=== PATIENT | male | born 1995 | race Caucasian/White ===

== ENCOUNTER 2017-01-24 22:23 | Emergency (ER) | payer BC ==
[2017-01-24] MEDS ORDERED: Fluorescein 1 MG Ophth Strip EYEBOTH ONE (22:39)
[2017-01-24] MEDS ORDERED: Proparacaine 0.5% Ophth Soln 15 ML Bottle EYELF PRN (22:40)
--- NOTE | 2017-01-25 00:31 | EDM.PDOC ---
ED HPI GENERAL MEDICAL PROBLEM - General Chief Complaint: ENT Problem Stated Complaint: ?Foreign body, right eye irritation Time Seen by Provider: 01/24/17 22:39 Source of Information: Reports: Patient History Limitations: Reports: No Limitations - History of Present Illness INITIAL COMMENTS - FREE TEXT/NARRATIVE: Patient was welding earlier today and got some slag in right also. Also had brief exposure to weld light even though he was wearing a welding helmet. He went to optometry to get the metal removed and tonight his eyes started to burn more. He has had weld burn before and states pain is not too bad. he mainlywants his eyes checked to make sure there is nor more slag in them as both eye are irritated and watering. Onset: Today, Gradual Duration: Hour(s): Location: Reports: Other (eyes bilaterally) Quality: Reports: Burning Severity: Mild Improves with: Reports: Other (has been using his daughters gentamycin eye drop which seem to help) Worsens with: Reports: None Associated Symptoms: Reports: No Other Symptoms ED ROS ENT - Review of Systems Review Of Systems: See Below Constitutional: Reports: No Symptoms HEENT: Reports: Other (watery, irritated red eyes bilat) Respiratory: Reports: No Symptoms Cardiovascular: Reports: No Symptoms Endocrine: Reports: No Symptoms GI/Abdominal: Reports: No Symptoms : Reports: No Symptoms Musculoskeletal: Reports: No Symptoms Skin: Reports: No Symptoms Neurological: Reports: No Symptoms Psychiatric: Reports: No Symptoms Hematologic/Lymphatic: Reports: No Symptoms Immunologic: Reports: No Symptoms ED EXAM, ENT - Physical Exam Exam: See Below Exam Limited By: No Limitations General Appearance: Alert, WD/WN, No Apparent Distress Eye Exam: Bilateral Eye: EOMI, Normal Fundi, Normal Inspection, PERRL, Other ( Eyes were stained with fluorescin after being numbed with a drop of propairacaine. Examined with blue light and magnification. NO foreign bodies, cornea abrasions or other abnormalities found. Anterior chamber clear bilat. conjunctive and sclera with mild injection. upper and lower lids pink and slightly puffy bilat. Both eyes watery.) Ears: Normal External Exam, Normal Canal, Hearing Grossly Normal Head: Atraumatic, Normocephalic Respiratory/Chest: No Respiratory Distress Neurological: Alert, Oriented Psychiatric: Normal Affect, Normal Mood Skin: Warm, Dry Course - Vital Signs Text/Narrative:: Eyes examined as noted above. - Orders/Labs/Meds Orders: Active Orders 24 hr Category Date Time Status Proparacaine [Proparacaine 0.5% Ophth Soln] Med 01/24/17 22:40 Active 1 ml EYELF ASDIRECTED PRN Medication Orders Proparacaine HCl (Proparacaine 0.5% Ophth Soln) 1 ml EYELF ASDIRECTED PRN PRN Reason: Other Last Admin: 01/24/17 22:48 Dose: 4 drop Meds: Medications Generic Name Dose Route Start Last Admin Trade Name Freq PRN Reason Stop Dose Admin Proparacaine HCl 1 ml 01/24/17 22:40 01/24/17 22:48 Proparacaine 0.5% Ophth Soln EYELF 4 drop ASDIRECTED PRN Administration Other Discontinued Medications Generic Name Dose Route Start Last Admin Trade Name Freq PRN Reason Stop Dose Admin Fluorescein Sodium 1 mg 01/24/17 22:39 01/24/17 22:47 Ful-Jeanne EYEBOTH 01/24/17 22:40 1 mg ONETIME ONE Administration Departure - Departure Time of Disposition: 23:20 Disposition: Home, Self-Care 01 Condition: good Clinical Impression: Irritation of eye Welders' keratitis Qualifiers: Laterality: bilateral Qualified Code(s): H16.133 - Photokeratitis, bilateral - Discharge Information Instructions: Eye Foreign Body, [id number] Referrals: Jaime Bruce MD [Primary Care Provider] - Forms: ED Department Discharge Additional Instructions: Do not rub eyes. Use the eye drops you have no more than four times a day. 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 - My Orders Last 24 Hours: My Active Orders 01/24/17 22:40 Proparacaine [Proparacaine 0.5% Ophth Soln] 1 ml EYELF ASDIRECTED PRN - Assessment/Plan Last 24 Hours: My Active Orders 01/24/17 22:40 Proparacaine [Proparacaine 0.5% Ophth Soln] 1 ml EYELF ASDIRECTED PRN
[2017-01-25 03:03] VITALS: BP 137/82
== END 2017-01-24 23:21 | disposition home or self-care (01) ==
LOC: VM.ED 22:23
DX: H16.133 Photokeratitis, bilateral (principal)
CPT/HCPCS: 99283